=== PATIENT | female | born 1975 | race Caucasian/White ===

== ENCOUNTER 2025-07-04 11:35 | Emergency (ER) | payer BC ==
[~2025-07-04] VITALS: Ht 162.6 cm; Wt 105.7 kg
[~2025-07-04 11:35] MED LIST: CITA-178 PO; FERR324T PO; LEVO150T PO; PANT40TA54 PO; TIZA-189 PO; VORT10TA PO; b-12 IM
[2025-07-04 11:44] VITALS: BP 132/88; PULSE 76; TEMP 98.6; O2SAT 99
[2025-07-04 12:03] LABS: LEUKOCYTE ESTERASE ,URINE NEGATIVE (Neg); NITRITES, URINE NEGATIVE (Neg); OCCULT BLOOD,URINE NEGATIVE (Neg)
[2025-07-04 12:04] LABS: URINE HCG NEGATIVE (NEG)
[2025-07-04 12:05] LABS: UA COLLECTION TYPE CLN CATCH MIDSTREAM
[2025-07-04 12:18] LABS: MUCUS STRANDS FEW /LPF (Neg); RENAL CELLS, URINE MODERATE /HPF; SQUAMOUS EPITHELIAL CELL,UR MANY /LPF (FEW)
[2025-07-04 12:28] LABS: MEAN PLATELET VOLUME 8.1 FL (7.4-10.4); RED CELL DISTRIBUTION WIDTH 15.6 % (11.5-14.5)
[2025-07-04 12:39] LABS: CREATININE 1.02 MG/DL (0.40-0.90); TOTAL CARBON DIOXIDE 25.2 MMOL/L (24-32); eCRCL 58 ML/MIN; eGFR 58 ML/MIN
[2025-07-04 13:50] VITALS: RESP 18
--- NOTE | 2025-07-04 14:34 | Physician Documentation ---
History of Present Illness ~ Chief Complaint: Flank Pain Stated Complaint: ABD PAIN POST KARLENE Time Seen by MD: 13:30 Mode of Arrival: POV, Ambulatory HPI Patient is seen today about 10 days status post hiatal hernia repair. Patient states she is having some increased abdominal pain after increasing her activities of daily living slightly. Patient states she has not lifted anything but was doing some laundry the other day and pulled the laundry basket and felt some increased abdominal pain. Patient states she does have postop follow up later this week. She denies any fever but states she has felt some chills. Patient has no other concern or complaint at this time. She denies any chest pain or shortness of breath or no nausea, vomiting, diarrhea. Medication Reconciliation Allergies: Coded Allergies: Iodinated Contrast Media (Unverified Allergy, Severe, 02/04/25) amoxicillin (Verified Allergy, Unknown, 07/04/25) Scheduled Citalopram Hydrobromide* (Celexa*), 1 TAB PO DAILY, (Reported) Ferrous Gluconate (Ferrous Gluconate), 2 TAB PO Q8H, (Reported) Levothyroxine Sodium (Synthroid), 1 TAB PO DAILY, (Reported) Pantoprazole Sodium (Pantoprazole Sodium), 1 TAB PO DAILY, (Reported) Tizanidine Hcl (Zanaflex), 2 MG PO HS, (Reported) Vortioxetine Hydrobromide (Brintellix), 1 TAB PO DAILY, (Reported) [b-12], Unknown Dose IM Q7D, (Reported) Past Medical History Past Medical History: Cholelithiasis, Anemia, Renal Disease Past Surgical History: hysterectomy, other Alcohol Use: None Drug Use: none Lives with: Spouse Lives In: Home Review of Systems Constitutional: Denies: chills, fever, weakness Eyes: Denies: pain, blurred vision ENT: Denies: ear pain, nose pain, throat pain, mouth pain Respiratory: Denies: cough, shortness of breath Cardiovascular: Denies: chest pain, palpitations Gastrointestinal: Denies: abdominal pain, nausea, vomiting Genitourinary: Denies: burning, dysuria Female Genitalia: Denies: vaginal discharge, pelvic pain Neurological: Denies: headache, dizziness Musculoskeletal: Denies: pain, swelling Integumentary: Denies: rash, lesions Allergic/Immunologic: Denies: hives, itching Hematologic/Lymphatic: Denies: no symptoms reported Psychiatric: Denies: depression, anxiety Physical Exam Vital Signs: Temperature: 98.6, Source: Temporal, Heart Rate: 76, Respiratory Rate: 18, BP: 132/88, Pulse Oximetry: 99, Weight: 105.700 Oxygen Flow Rate: 0 Physical Exam General: Awake and Alert, no acute distress. HEENT: Conjunctiva pink, Sclera clear, Mucus Membranes moist. Neck: Supple without masses and tenderness. Resp: Unlabored. Lungs clear to auscultation bilaterally. Heart: Regular Rate and rhythm, normal S1 and S2 without murmur, rub or gallop. Abdomen: Abdomen is Soft, nondistended, grossly nontender to palpation. Patient has some mild diffuse abdominal discomfort. Patient has healing surgical incisions of the abdomen without any sign of infection. Extremities: No cyanosis,clubbing or edema. Skin: Warm and Dry. Progress Results/Orders Results/Orders Vital Signs 07/04/25 07/04/25 11:44 13:50 Temp 98.6 Pulse 76 Resp 16 18 B/P (MAP) 132/88 Pulse Ox 99 O2 Flow Rate 0 Laboratory Tests Test 07/04/25 11:45 07/04/25 12:17 07/04/25 12:18 Urine Specimen Description Cln catch midstream Urine Color Yellow Urine Clarity Cloudy Urine pH 5.5 Urine Specific Floyd 1.025 Urine Protein Negative Urine Glucose (UA) Negative Urine Ketones Trace H Urine Occult Blood Negative Urine Nitrite Negative Urine Bilirubin Small Urine Urobilinogen 0.2 Urine Leukocyte Esterase Negative Urine RBC 0-2 Urine WBC 0-4 Urine Squamous Epithelial Cells Many Urine Transitional Epithelial Cells Many Urine Renal Cells Moderate Urine Bacteria 1+ Urine Mucus Few Urine Culture Indicated Not ind Volume Urine Centrifuged 10 ml Urine HCG, Qualitative Negative Urine Comment Sodium Level 138 Potassium Level 4.2 Chloride Level 104 Carbon Dioxide Level 25.2 Anion Gap 9 Blood Urea Nitrogen 12 Creatinine 1.02 H Estimated GFR/1.73 m2 58 BUN/Creatinine Ratio 11.8 Glucose Level 95 Calcium Level 9.2 Total Bilirubin 0.4 Aspartate Amino Transf (AST/SGOT) 32 Alanine Aminotransferase (ALT/SGPT) 55 Alkaline Phosphatase 85 Total Protein 8.3 H Albumin 4.0 Globulin 4.3 Albumin/Globulin Ratio 0.9 L Lipase 30 Chemistry Comments White Blood Count 6.3 Red Blood Count 4.75 Hemoglobin 13.8 Hematocrit 42.4 Mean Corpuscular Volume 89.2 Mean Corpuscular Hemoglobin 29.0 Mean Corpuscular Hemoglobin Concent 32.5 L Red Cell Distribution Width 15.6 H Platelet Count 392 Mean Platelet Volume 8.1 Neutrophils (%) (Auto) 59.9 Lymphocytes (%) (Auto) 29.9 Monocytes (%) (Auto) 5.2 Eosinophils (%) (Auto) 4.4 Basophils (%) (Auto) 0.6 Neutrophils # (Auto) 3.8 Lymphocytes # (Auto) 1.9 Monocytes # (Auto) 0.3 Eosinophils # (Auto) 0.3 Basophils # (Auto) 0.0 CBC Comment Medical Decision Making Findings Patient is seen today about 10 days status post hiatal hernia repair. Patient states she is having some increased abdominal pain after increasing her activities of daily living slightly. Patient states she has not lifted anything but was doing some laundry the other day and pulled the laundry basket and felt some increased abdominal pain. Patient states she does have postop follow up later this week. She denies any fever but states she has felt some chills. Patient has no other concern or complaint at this time. She denies any chest pain or shortness of breath or no nausea, vomiting, diarrhea. Patient did have labs that were very reassuring with normal white count and no sign of UTI and labs largely unremarkable of metabolic panel. Patient will keep appointment or follow up appointment with her surgeon. She will return to ED with any worsening, concerning or changing symptoms. She will take it easy and not lift any thing greater than 3 lb. Departure Disposition: 01 HOME / SELF CARE / HOMELESS Impression: Primary Impression: Abdominal pain Qualified Codes: R10.84 - Generalized abdominal pain Condition: Stable Additional Instructions: Patient did have labs that were very reassuring with normal white count and no sign of UTI and labs largely unremarkable of metabolic panel. Patient will keep appointment or follow up appointment with her surgeon. She will return to ED with any worsening, concerning or changing symptoms. She will take it easy and not lift any thing greater than 3 lb. Referrals: NO PRIMARY CARE PROVIDER (PCP) Signature Scribe Signature: No scribe Attestation: No scribe NAOMI AMAYA PAC Jul 04, 2025 14:34
== END 2025-07-04 14:53 | disposition home or self-care (01) ==
LOC: ER 11:35
DX: R10.84 Generalized abdominal pain (principal); D64.9 Anemia, unspecified; Z91.041 Radiographic dye allergy status; Z98.890 Other specified postprocedural states; Z90.710 Acquired absence of both cervix and uterus; Z88.1 Allergy status to other antibiotic agents; Z79.899 Other long term (current) drug therapy
CPT/HCPCS: 36415; 80053; 81001; 81025; 83690; 85025; 99283